=== PATIENT | male | born 1990 | race Caucasian/White ===

== ENCOUNTER 2016-08-17 00:53 | Emergency (ER) | payer BC ==
[2016-08-17] MEDS ORDERED: ASPIRIN 81 MG (BABY) CHEWABLE TABLET PO ONE (01:16)
[2016-08-17] MEDS ORDERED: Sodium Chloride 0.9% 1,000 ML PRIMARY IV ONE ×2 (01:16→02:04)
[2016-08-17] MEDS ORDERED: NORMAL SALINE 10 ML SYRINGE FLUSH IVP PRN (01:16)
[2016-08-17] MEDS ORDERED: ONDANSETRON 4 MG/2 ML VIAL IVP ONE (01:16)
[2016-08-17] MEDS ORDERED: NITROGLYCERIN 0.4 MG SL TAB (BOTTLE OF 3) SL PRN (01:16)
[2016-08-17] MEDS ORDERED: MAG HYDROX/AL HYDROX/SIMETH 30 ML SUSP PO ONE (01:16)
[2016-08-17 01:18] VITALS: RESP 18; TEMP 96.9
--- NOTE | 2016-08-17 01:20 | EKG ---
[address] [address] Measurements Intervals [place] Rate: 50 P: 68 VA: 207 QRS: 76 QRSD: 110 T: 55 QT: 411 QTc: 386 Interpretive Statements SINUS BRADYCARDIA INDETERMINATE AXIS No previous ECG available for comparison Electronically Signed On 08-17-16 11:25:45 MST by Randy Anguiano [email or web address]
[2016-08-17 01:27] LABS: BASOPHILS # (AUTO) 0.05 10*3/UL; BASOPHILS % (AUTO) 0.6 % (0-1); EOSINOPHILS % (AUTO) 2.3 % (0-8); HEMOGLOBIN 15.9 g/dL (14.0-18.0); IMM GRAN % (AUTO) 0.2 % (0-5); IMM GRAN# (AUTO) 0.02 10*3/UL; LYMPHOCYTES # (AUTO) 1.98 10*3/uL; LYMPHOCYTES % (AUTO) 23.9 % (10-50); MEAN CORPUSCULAR HEMOGLOBIN 28.3 PG (27-31); MEAN CORPUSCULAR HGB CONC 34.6 g/dL (33-37); MEAN PLATELET VOLUME 10.1 FL (7.4-12.2); MONOCYTES # (AUTO) 0.97 10*3/UL (0.3-0.8); MONOCYTES % (AUTO) 11.7 % (5-15); NEUTROPHILS # (AUTO) 5.09 10*3/UL; NEUTROPHILS % (AUTO) 61.3 % (50-80); PLATELET MORPHOLOGY COMMENT NORMAL MORPHOLOGY (NORM); RDW COEFFICIENT OF VARIATION 13.1 % (11.5-14.5); RED BLOOD COUNT 5.62 10^6/uL (4.70-6.10)
[2016-08-17 01:35] LABS: AMYLASE 40 U/L (30-110); ASPARTATE AMINO TRANSFERASE 153 IU/L (21-57); BLOOD UREA NITROGEN 13 mg/dL (7-22); BUN/CREATININE RATIO 14.44 (6-20); CALCIUM 9.4 mg/dL (8.7-10.7); CHLORIDE 102 meq/L (98-112); CREATININE 0.9 mg/dL (0.70-1.50); EST GLOMERULAR FILTRATION > 60 (>60 ml/min/1.73m(2)); GLUCOSE 103 mg/dL (78-110); POTASSIUM 4.1 meq/L (3.8-5.2); SODIUM 139 meq/L (135-145); TOTAL PROTEIN 7.1 g/dL (6.1-8.0)
[2016-08-17] MEDS ORDERED: Belladon/PHENobarbital Elixir 10 ML, Lidocaine Viscous Liquid 2% 15 ML, Mag Hyd/Al Hyd/... PO ONE ×3 (01:37)
[2016-08-17 01:47] LABS: CREATINE KINASE MB < 0.22 NG/DL (0.00-5.00); TROPONIN I < 0.012 ng/mL (< 0.040)
[2016-08-17] MEDS ORDERED: Pantoprazole Inj 40 MG in Normal Saline Flush 10 ML IVP ONE (02:04)
[2016-08-17] MEDS ORDERED: HYDROmorphone 2 MG/1 ML IVP ONE (02:04)
--- NOTE | 2016-08-17 02:15 | DI ---
HISTORY: Chest pain. TECHNIQUE: A single portable frontal view of the chest is submitted. FINDINGS: There is no pleural effusion, consolidation, or pneumothorax. The cardiomediastinal silho uette is within normal limits. Osseous structures are normal for age. IMPRESSION: 1. No radiographic evidence of acute cardiopulmonary pathology.
--- NOTE | 2016-08-17 02:55 | DI ---
HISTORY: Non-radiating upper epigastric pain and central chest pain. Elevated D-dimer. TECHNIQUE: Contiguous axial images of the chest were obtained and submitted for interpretation. FINDINGS: No main or segmental pulmonary emboli. No pneumothorax, pleural effusion, or area of consolidation. There is a 4 mm pulmonary nodule in the lingula. Airways are patent with no endobronchial lesion. No evidence of great vessel injury, dissection, or aneurysm. Heart size is normal with no pericardia l effusion. No mediastinal or hilar lymphadenopathy. Soft tissue attenuation in the anterior mediastinum likely r epresents residual thymic tissue in the absence of additional clinical or laboratory findings. The thyroid exhibits normal CT morphology. Limited evaluation of the upper abdomen reveals no pathol ogic abnormality. No acute osseous abnormality or aggressive osseous lesion. IMPRESSION: 1. No main or segmental pulmonary emboli. 2. Pulmonary nodule measures 4 mm in the lingula. Follow-up is recommended according to the Fleischn er criteria.
--- NOTE | 2016-08-17 03:14 | DI ---
HISTORY: Non-radiating upper epigastric pain. TECHNIQUE: Contiguous axial images of the abdomen and pelvis were obtained and submitted for interpr etation. FINDINGS: Normal CT appearance of the liver, gallbladder, pancreas, spleen, kidneys, and adrenal gla nds. Ureters and bladder are unremarkable. No radiopaque renal or collecting system calculi. No andrew dence of obstructive uropathy. The third segment of the duodenum and a loop of jejunum are prominent, though there is stool and gas throughout the remaining bowel. This is a nonspecific bowel gas pattern. Hollow viscus organs demonst rate otherwise normal course and caliber. The appendix is within normal limits. There is no intraper itoneal free air or fluid. Vascular structures are intact with mild periportal edema. No abdominope lvic lymphadenopathy is present. There is no inguinal or umbilical hernia. The lung bases are clear. Osseous structures are within normal limits for age. IMPRESSION: 1. Nonspecific bowel gas pattern, as above.
--- NOTE | 2016-08-17 05:07 | PDOC ---
General Adult HPI - General Chief Complaint: Abdomen Pain Stated Complaint: LOWER LEFT CHEST/EPIGASTRIC PAIN Date Seen by Provider: 08/17/16 Time Seen by Provider: 01:00 Source: POSITIVE: Patient, Spouse Exam Limitations: POSITIVE: No limitations Nurse's Notes Reviewed & Considered: Yes - History of Present Illness Initial Comment: The patient is a 26 year old male. 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 He states that the pain radiated into the anterior thorax and into both arms. He states that his pain has been waxing and waning. Some associated nausea but no vomiting. No diarrhea, melena, hematochezia, hematemesis, dysuria or hematuria. No fevers or chills. No dyspnea. Patient states he has a history of GERD. He does not smoke but he chews tobacco. He is on no medications on a regular basis; he does occasionally take Aleve and [id number]-hcevayu Zantac. Have you received a tetanus shot in the past 10 years?: Yes Body Location Affected: REPORTS: Chest, Abdomen Timing: REPORTS: Abrupt, Intermittent Duration: <24 hours (Approximately 11 hours) Severity: Moderate Quality: REPORTS: "Pain" Context: DENIES: None, Sitting, Standing, Activity, Emotional stress, Coughing, Recent Trauma, Recent Surgery, Sleep, Rest, Lifting, Turning, Bending, Fall, Near Fall, Other Modifying Factors: worse with: Nothing, Analgesics, Antacids, Breathing, Coughing, Defecating, Vomiting, Eating, Exercise, Lying down, Urinating, Palpation, Movement, Rest, Upright Position, Walking, Remaining Still, Other Similar Symptoms Previously: No Recent Care Received: REPORTS: Denies Any Prior Injuries Related to Current Complaint?: No - Patient Home Medications Home Medications: Home Medications NK [No Home Medications Reported] 08/17/16 - Patient Allergies Allergies/Adverse Reactions: Allergies Allergy/AdvReac Type Severity Reaction Status Date / Time No Known Drug Allergies Allergy NOT Verified 08/17/16 01:20 APPLICABLE Past Medical History - heen HEENT History: Denies History Cardiovascular History: Denies History Respiratory History: Denies History Gastrointestinal History: Denies History Genitourinary History: Denies History Endocrine History: Denies History Musculoskeletal History: Denies History Prosthesis or Implant: No Additional Musculoskeletal History: RECENT MUSCLE STRAIN THIGH Neurological History: Denies History Blood Disorders: Denies History Psychiatric History: Denies History History of Sexually Transmitted Diseases: No Male Reproductive History: Denies History Cancer History: Denies History In Past Year Been Physically Harmed or Verbally Threatened: No History of MDRO: Unknown History of Other Communicable Diseases: No Tobacco Use: Never Smoker Alcohol Use: Occasionally Substance Use Type: None Previous Surgical History: Yes Type / Date of Surgery: left knee scope, "skull surgery"as infant Anesthesia Reactions: No Malignant Hyperthermia: No Significant Family History: No pertinent family hx Past Medical History Reviewed: Reviewed - No Changes ROS - Limitations ROS Limitations: No Limitations Constitution: REPORTS: Denies Symptoms Cardiovascular: REPORTS: Chest Pain Respiratory: REPORTS: Denies Resp Symptoms Neurological: REPORTS: Denies Neuro Symptoms Gastrointestinal: REPORTS: Abdominal Pain, Nausea Endocrine: REPORTS: Denies Symptoms Musculoskeletal: REPORTS: Denies MS Symptoms Genitourinary: REPORTS: Denies Symptoms Eyes: REPORTS: Denies Symptoms ENT: REPORTS: Denies Symptoms Skin: REPORTS: Denies Skin Symptoms Lympathic: REPORTS: Denies Lympathic Symptoms Immunologic: POSITIVE: Denies Symptoms Psychiatric: POSITIVE: Denies Psych Symptoms General Adult Exam - General Appearance General Appearance: POSITIVE: Alert, Cooperative, No Acute Distress, No Evidence of Trauma - HEENT HEENT: POSITIVE: Head Inspection Nml, Eyes Inspection Nml, Ears Inspection Nml, Nose Inspection Nml, Oral/Dental Inspect. Nml, Pharynx Inspect. Nml, PERRL, EOMI - Pupils Pupil Size: 4 mm: Bilateral (PERRLA) - Neck Neck: POSITIVE: Normal Inspection, Thyroid Normal - Respiratory Respiratory: POSITIVE: No Respiratory Distress, Breath Sounds Normal, Chest Non- Tender - Cardiovascular Cardiovascular: POSITIVE: Regular Rate & Rhythm, No Murmur, No Gallop, PMI Normal Peripheral Pulses: Radial (R): 2+, Radial (L): 2+ - Abdomen Abdomen: Soft: (All Quadrants), Normal Bowel Sounds: (All Quadrants), Denies Tenderness: (RLQ), (LLQ), No Splenomegaly: (All Quadrants), No Hepatomegaly: ( All Quadrants), No Guarding: (All Quadrants), No Rebound: (All Quadrants), No Palpable Pulse: (All Quadrants), No Palpabale Mass: (All Quadrants), No Distention: (All Quadrants), No Rigidity: (All Quadrants), Tenderness Noted: ( RUQ), (LUQ) Additional Abdominal Details: Abdominal examination shows bowel sounds to be active. Patient does complain of some poorly localized discomfort on firm palpation over the upper abdomen, somewhat more in the right upper quadrant than the left upper quadrant. No masses or organomegaly or rebound. Chest wall is nontender. - Back Back: POSITIVE: Normal Inspection - Skin Skin: POSITIVE: Normal Color, Warm, Dry, No Rash - Neurological / Psychological Neurological: POSITIVE: Oriented X3, loss claim clerk Normal As Tested, Motor Normal, Sensation Normal, 5, 6 Images - Complete Complete: 1 - Area described chest discomfort, which patient describes as radiating up from the upper abdomen 2 - Area described abdominal discomfort General Adult Progress - Results Reviewed by me Xrays/CTs/US Reviewed by me: Yes Discussed with Radiologist: Yes (AP chest x-ray normal. Patient had an elevated d-dimer and therefore CTA of the chest was done which showed no pulmonary emboli or other abnormalities except for a 4 mm pulmonary nodule in the lingula. CT abdomen and pelvis with IV contrast showed the third segment of the duodenum and a loop of the jejunum be prominent with a nonspecific bowel pattern. Right upper quadrant abdominal ultrasound shows possibly a small gallstone per street commissioner.) Radiology Findings: Portable chest x-ray normal. D-dimer was elevated and therefore CTA was done which was read as normal except for a 4 mm pulmonary nodule in the lingula. CT abdomen and pelvis with contrast was read as normal except the third segment of the duodenum and a loop of the jejunal more prominent with normal stool in fell gas pattern. Ultrasound of the right upper quadrant was normal except for a questionable small gallstone. Lab Results Reviewed: Yes (d-dimer elevated; hepatic enzymes elevated.) Lab Results:: Laboratory Results 08/17/16 08/17/16 Range/Units 01:05 03:50 WBC 8.30 (4.8-10.8) 10^3/uL RBC 5.62 (4.70-6.10) 10^6/uL Hgb 15.9 (14.0-18.0) g/dL Hct 46.0 (42.0-52.0) % MCV 81.9 (80-90) FL MCH 28.3 (27-31) PG MCHC 34.6 (33-37) g/dL RDW Std Deviation 39.3 (39-50) fL RDW Coeff of Ifrah 13.1 (11.5-14.5) % Plt Count 251 (140-350) 10*3/uL MPV 10.1 (7.4-12.2) FL Immature Gran % (Auto) 0.2 (0-5) % Neut % (Auto) 61.3 (50-80) % Lymph % (Auto) 23.9 (10-50) % Pine % (Auto) 11.7 (5-15) % Eos % (Auto) 2.3 (0-8) % Baso % (Auto) 0.6 (0-1) % Immature Gran # (Auto) 0.02 10*3/UL Neut # (Auto) 5.09 10*3/UL Lymph # (Auto) 1.98 10*3/uL Pine # (Auto) 0.97 H (0.3-0.8) 10*3/UL Eos # (Auto) 0.19 10*3/UL Baso # (Auto) 0.05 10*3/UL WBC Morphology Comment Normal morphology (NORM) Plt Morphology Comment Normal morphology (NORM) RBC Morph Comment Normal morphology (NORM) D-Dimer 0.93 H (0.00-0.59) mg/L Sodium 139 (135-145) meq/L Potassium 4.1 (3.8-5.2) meq/L Chloride 102 (98-112) meq/L Carbon Dioxide 23 (23-33) meq/L Anion Gap 14 (5-20) BUN 13 (7-22) mg/dL Creatinine 0.9 (0.70-1.50) mg/dL Estimated GFR > 60 (>60 ml/min/1.73m(2)) BUN/Creatinine Ratio 14.44 (6-20) Glucose 103 (78-110) mg/dL Calculated Osmolality 287.0 (267-292) mOsm/kg Calcium 9.4 (8.7-10.7) mg/dL Total Bilirubin 1.0 (0.3-1.2) mg/dL AST 153 H (21-57) IU/L ALT 128 H (21-72) IU/L Alkaline Phosphatase 148 H (38-126) IU/L CK-MB (CK-2) < 0.22 (0.00-5.00) NG/DL Troponin I < 0.012 < 0.012 (< 0.040) ng/mL Total Protein 7.1 (6.1-8.0) g/dL Albumin 4.5 (3.5-4.8) g/dL Globulin 2.6 (2.50-4.10) g/dL Albumin/Globulin Ratio 1.70 (1.3-2.0) mg/g Amylase 40 (30-110) U/L Lipase 49 (23-300) IU/L EKG Interpreted/Reviewed By Me:: Yes (sinus bradycardia at 50/m; otherwise normal) EKG Interpretation:: POSITIVE: Normal Sinus Rhythm (Sinus bradycardia at 50/m), Normal Rate (Sinus at 50/m), Normal Intervals, Normal [place], Normal QRS, Normal ST/T - Patient's Progress Pain Medication Addressed: POSITIVE: Yes (Patient given nitroglycerin with no effect. Patient given Dilaudid 2 mg IV with good effect. Patient also given Protonix IV.) School/Work Release Addressed: POSITIVE: Yes (Work excuse for today given.) Re-Examine Time: 04:55 Re-Examine Comment: Discomfort much less. Patient advised to follow up with his primary care provider and return here anytime if condition worsens in anyway whatsoever; see discharge instructions. Status: POSITIVE: Improved, Re-Examined Antibiotics Given: No Quality Measure Initiative: CP/AMI: POSITIVE: EKG, ASA - Consult Counseled: POSITIVE: Patient, Family (), RE: Lab Results, RE: Radiology Results, RE: DX, RE: Need for F/U Patient Care Time - Estimated PCT Patient Care Time (In Minutes): 60 Vital Signs - Recent Vital Signs Vital Signs: Vital Signs (Last 8 hours) Temp Pulse Pulse Pulse Resp BP Pulse Ox 08/17/16 00:54 96.9 F 57 L 57 L 57 L 18 113/81 97 - VS Reviewed Vital Signs Reviewed: Yes Discharge Clinical Impression: Abdominal pain, Chest discomfort Discharge Disposition: Discharged to Home Condition: Stable Patient Instructions Given at Discharge: Acute Abdominal Pain (ED), Noncardiac Chest Pain (ED) Additional Instructions: I'm not completely sure why you were having your upper abdominal pain. CT scan of your abdomen and pelvis with IV contrast was normal. Ultrasound of your gallbladder shows possibly one small stone. It is still possible that your discomfort may have been coming from the gallbladder, condition known as biliary colic. If symptoms persist, please follow-up with your primary care provider and he or she may want to get what is known as a HIDA scan, which is a test which can detect biliary dysfunction in the face of a normal ultrasound and CAT scan. CT scan of your chest does show a small pulmonary nodule which should be followed by your primary care provider. Try Zantac [id number], one twice daily. Clear liquid diet for 24 hours. Return anytime if condition worsens in any way whatsoever. Follow-up with your primary care provider. Avoid Aleve and Advil and take Tylenol for discomfort. Follow Up With: NONE,NONE [Primary Care Provider] - (Follow-up with your primary care provider as above. Return here anytime if condition worsens in any way.)
--- NOTE | 2016-08-17 05:18 | DI ---
HISTORY: Right upper quadrant pain x1 day. TECHNIQUE: Sonographic images of the abdomen were obtained and submitted for interpretation. FINDINGS: The liver exhibits homogeneous echotexture without discrete mass. There is no intrahepatic biliary dilatation. The gallbladder is unremarkable. No cholelithiasis is detected. There is no gallbladder wall thickeni ng. No pericholecystic fluid or sonographic Andre's sign is present. There is no extrahepatic biliar y dilatation with the common bile duct measuring 4 mm. The right kidney exhibits normal sonographic morphology. It measures 10.7 cm in length with no eviden ce of hydronephrosis or shadowing stones. Imaged portions of the pancreas are unremarkable. Imaged portions of the abdominal aorta demonstrate normal course and caliber. IMPRESSION: 1. No cholelithiasis or sonographic evidence of acute cholecystitis. NOTE: The interpreting Radiologist was not present at the time of ultrasound interrogation.
== END 2016-08-17 05:13 | disposition home or self-care (01) ==
LOC: ER 00:53
DX: R07.89 Other chest pain (principal); R10.13 Epigastric pain
CPT/HCPCS: 71010; 71275; 74177; 76705; 80053; 82150; 82553; 83690; 84484; 85025; 85379; 93005; 93010; 96361; 96374; 96375; 99284; J1170; J2405; J3490; J7030

== ENCOUNTER → 2016-08-24 | Outpatient (CLI) | payer BC ==
--- NOTE | 2016-08-24 16:05 | DI ---
Tc-99 HIDA BILIARY SCAN WITH FATTY MEAL CHALLENGE, 08/24/2016 1:05 PM : Clinical History: Right upper quadrant pain. Previous Related Exam: Gallbladder ultrasound, 08/17/2016. Prior to performing the study, the patient was given a preparatory meal. The patient was injected wit h 6 mCi of Tc-99 Choletec, a HIDA compound. An anterior dynamic flow study was performed followed by sequential anterior imaging at one minute intervals out to 30 minutes. The patient was then given a 3 8 gm fatty challenge and sequential anterior imaging at one minute intervals was carried out to 60 mi nutes for the gall bladder ejection phase. The patient did experience symptoms following both the pre paratory meal and the fatty meal challenge. Symptoms for both meals consisted of nausea. Gall bladder ejection fraction was calculated to be normal at 73 %. Readin. Normal excretory Tc-99 HIDA biliary kinetics. 2. Normal gallbladder ejection fraction of 73%. 3. The patient did experience nausea with both the preparatory meal and the fatty meal challenge, bu t did not complain of pain.
== END ==
LOC: NM 12:53
PROVIDERS: ATTEND Physician Assistant Medical
DX: R10.11 Right upper quadrant pain (principal)
CPT/HCPCS: 78226; A9537